=== PATIENT | male | born 1990 | race Native Hawaiian/Other Pacific Islander ===

== ENCOUNTER 2017-04-23 17:05 | Emergency (ER) | payer OTHER ==
[~2017-04-23] VITALS: Ht 160 cm; Wt 54.0 kg
[2017-04-23 17:20] VITALS: BP 92/63; PULSE 72; RESP 14; O2SAT 99
--- NOTE | 2017-04-23 18:36 | ED.REPORT ---
HPI- Male Date of Service Apr 23, 2017 ED Provider: Oni Santana DO Pt is a 26 y/o male who presents to the ED c/o RLQ abdominal pain onset last night. Additional symptoms include decreased appetite, constipation, dysuria, and fever. He denies nausea, vomiting, diarrhea, or penile discharge. Nursing Notes Stated Complaint: ABDOMINAL PAIN Chief Complaint: Male Abdominal Pain Nursing Notes Reviewed: Yes Allergies: Coded Allergies: No Known Allergies (Unverified Allergy, Unknown, 04/23/17) General Time Seen by MD: 18:35 Chief Complaint Abdominal pain... (RLQ) Hx Obtained From: Patient Arrived By: Walk-in Onset Occurred: Yesterday Location: : RLQ Associated with: Reports: Constipation, Fever Additional Notes: difficulty eating and dysuria Pertinent Negative: Pt denies other symptoms Recent Healthcare: No recent doctor visit, No recent hospitalization Similar Sx Previous: No Past Medical History Past Medical History no meds or chronic conditions Past Surgical History Denies Smoking History Unknown if Ever Smoker Ambulatory Status Independent Review of Systems Decreased appetite Constitutional: Reports: Fever GI: Reports: Abdominal pain (RLQ), Constipation, Denies: Diarrhea, Nausea, Vomiting Male: Reports Dysuria, Denies Penile discharge Complete sys rev & neg: except as marked. Physical Exam Initial Vital Signs Vital Signs (First) Date Time Temp Pulse Resp B/P Pulse Ox O2 Delivery O2 Flow Rate FiO2 04/23/17 17:20 36.7 72 14 92/63 99 Room Air Initial VS: Reviewed Head / Eyes: Atraumatic, Normocephalic Neck: Supple, Full range of motion Extremities: Vascular intact, Neuro intact, No swelling, No tenderness Skin: Warm, Dry, No cyanosis Neurologic: Alert, Oriented, Nonfocal Psychiatric: Mood/affect normal, Behavior normal, Normal thought content Male : Chief complaint was RLQ abdominal pain No exam needed General/Constitutional: Awake, Alert Abdomen: Soft, Non-tender Respiratory / Chest: Atraumatic, Breath sounds NL, Breath sounds = bilat, No respiratory distress Cardiovascular: Heart rate NL, Regular rhythm, Heart sounds NL Interpretation & Diagnostics Lab Results Interpretation Test 04/23/17 18:12 04/23/17 18:41 Hold Urine Received (Received) Urine Color Dark yellow (YELLOW) Urine Appearance Clear (CLEAR,HAZY) Urine pH 6.0 (5.0-8.0) Urine Specific [place] 1.025 (1.003-1.035) Urine Protein Negativemg/dL (NEG,TRACE) Urine Glucose (UA) Negativemg/dL (NEGATIVE) Urine Ketones Negativemg/dL (NEGATIVE) Urine Occult Blood Negative (NEGATIVE) Urine Nitrite Negative (NEGATIVE) Urine Bilirubin Negative (NEGATIVE) Urine Urobilinogen Normalmg/dL (NORMAL) Urine Leukocyte Esterase Negative (NEGATIVE) Urine RBC 0-2/hpf (0-2) Urine WBC 0-5/hpf (0-5) Urine Epithelial Cells Few/hpf (NONE-MOD) Urine Crystals Oxalic acid crystals (NONE Urine Bacteria Few/hpf (NONE-FEW) Urine Hyaline Casts None/lpf (NONE) Urine Granular Casts None seen (NONE SEEN) Urine Waxy Casts None seen (NONE SEEN) Urine Red Blood Cell Casts None seen (NONE SEEN) Urine White Blood Cell Casts None seen (NONE SEEN) Urine Mucus None seen (None Seen) Urine Trichomonas None seen (NONE SEEN) Urine Yeast None (NONE SEEN) Urinalysis Comment None Urine Culture Reflexed Not indicated CT Abd / Pelvis Interpretation IMPRESSION: 1. No hydronephrosis, nephrolithiasis, hydroureter, or ureterolithiasis. 2. No perinephric fat stranding or edema to suggest acute pyelonephritis. 3. Normal appendix. 4. Probable right iliac bone island. If the patient endorses focal pain in this region, further characterization with MRI may be warranted. Dictated by: Jayne Lester M.D. on 04/23/2017 at 19:20 Approved by: Jayne Lester M.D. on 04/23/2017 at 19:25 Study type: Abdominal CT no contrast Interpretation / Wet Read by: Interpret - Radiologist Re-Eval/Medical Decision Med Decision/Clinical Course Healthy 26-year-old male with intermittent right flank, right lower quadrant and right testicular pain. All pain resolved on evaluation. Urinalysis showed oxillac acid crystals. Abdominal exam was otherwise normal. Abdomen soft and nontender. No signs of torsion or an acute abdomen. Denies testicular pain, testicular swelling. CT scan was normal. Urine sent for GEN probe testing. He is sexual active so we will treat him for possible urethritis. Recommend outpatient follow-up. Source of Hx: Old records Re-Evaluation/Progress : Time of Eval: 19:56 Patient Status: Condition improved Re-Evaluation/Progress Note: Patient rechecked. Discussed plan for discharge. Patient understands and agrees with plan. F/U instructions and RTER warnings given. All questions addressed at this time. Counseled Regarding: Diagnosis, Lab results, Need for follow-up, When/why to return to ED Discharge & Departure Impression: Primary Impression: Generalized abdominal pain Disposition: Home Discharge Condition All VS Reviewed: Yes Condition: Stable Patient Instructions: Acute Abdominal Pain (ED) Additional Instructions: The CAT scan did not show evidence of appendicitis or kidney stone. Your urine sample does have oxalate acid crystals in it which can be associated with kidney stones. The testicular pain you had maybe associated with sexual transmitted infection. We are testing your urine for this. This will be allowable about 3-5 days. Follow up with her primary care or the referral clinic to discuss this. In the meantime, take doxycycline twice daily for 7 days. Avoid direct sunlight while taking the doxycycline. Return if any problems or if you have any return of the testicular or abdominal pain. Referrals: [facility] (PCP) Samir Peralta MD Scribe Attestation Portions of this note were transcribed by Rita Kan. I, Dr. Santana, personally performed the history, physical exam and medical decision-making; I reviewed and confirmed the accuracy of the information in the transcribed note. copies to: Samir Peralta MD, Todd P DO Apr 23, 2017 18:36 Rita Kan Apr 23, 2017 18:41
[2017-04-23 18:38] VITALS: BP 103/63; PULSE 56; RESP 14; O2SAT 100
[2017-04-23 19:03] LABS: APPEARANCE,URINE CLEAR (CLEAR,HAZY); COLOR,URINE DARK YELLOW (YELLOW); OCCULT BLOOD,URINE NEGATIVE (NEGATIVE); UROBILINOGEN,URINE NORMAL (NORMAL)
--- NOTE | 2017-04-23 19:27 | DRSVH ---
PROCEDURE: CT KUB ([id number]) INDICATIONS: right flank pain, urine frequency TECHNIQUE: Noncontrast 5 mm thick sections acquired from the diaphragms to the symphysis. 5 mm thick coronal an d sagittal reformats were then performed. For radiation dose reduction, the following was used: aut omated exposure control, adjustment of mA and/or kV according to patient size. COMPARISON: None. FINDINGS: Image quality: Excellent. Lung bases: Lung bases are clear. Heart size is normal. Urinary system: Both kidneys are normal in size. No kidney stones. No hydronephrosis or perinephri c fat stranding. Both ureters appear non-dilated throughout their expected courses. Bladder wall th ickness is normal; no calcified bladder stones. Other solid organs: Liver and spleen are normal in size. Gallbladder is unremarkable. Pancreas is normal in contours. No adrenal nodules. Peritoneum and bowel: Unenhanced bowel loops demonstrate normal wall thickness and caliber. The mauro endix is thin walled and gas filled. No free fluid or air. Nodes and vessels: No retroperitoneal or mesenteric adenopathy by size criteria. Aorta and inferior vena cava are normal in caliber. Abdominal wall: No ventral hernias. Pelvis: No free pelvic fluid. No inguinal hernias or adenopathy. Bones: No suspicious bony lesions. A small sclerotic focus is present within the right iliac which l ikely represents a small bone island. No vertebral body compression fractures. IMPRESSION: 1. No hydronephrosis, nephrolithiasis, hydroureter, or ureterolithiasis. 2. No perinephric fat stranding or edema to suggest acute pyelonephritis. 3. Normal appendix. 4. Probable right iliac bone island. If the patient endorses focal pain in this region, further nilesh cterization with MRI may be warranted. Dictated by: Jayne Lester M.D. on 04/23/2017 at 19:20 Approved by: Jayne Lester M.D. on 04/23/2017 at 19:25
[2017-04-23] MEDS ORDERED: cefTRIAXone Inj 250 MG, Lidocaine PF 1% Inj 0.9 ML in Syringe 1 EACH IM ONE (20:00)
[2017-04-23 20:48] VITALS: BP 115/80; PULSE 64; O2SAT 97
== END 2017-04-23 20:49 | disposition home or self-care (01) ==
LOC: SED 17:05
DX: R10.31 Right lower quadrant pain (principal); N50.811 Right testicular pain
CPT/HCPCS: 74176; 81000; 87491; 87591; 96374; 99284; J0696